=== PATIENT | male | born 1960 | race Caucasian/White ===

== ENCOUNTER 2024-04-28 08:52 | Emergency (ER) | payer BC, SELFPAY ==
[2024-04-28 08:57] VITALS: BP 164/97
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
[2024-04-28 12:14] VITALS: BP 119/65
== END 2024-04-28 13:04 | disposition home or self-care (01) ==
LOC: EMR 08:52
PROVIDERS: EMERGENCY PHYSICIAN Emergency Medicine; FAMILY PHYSICIAN Internal Medicine
DX: M79.651 Pain in right thigh (principal); V18.0XXA Pedal cycle driver injured in noncollision transport accident in nontraffic accident, initial encounter; Y93.55 Activity, bike riding
CPT/HCPCS: 99284; 73552; 93925

== ENCOUNTER → 2024-05-04 07:25 | Outpatient (REF) | payer BC, SELFPAY | LOC: RAD 07:25 | PROVIDERS: ATTENDING PHYSICIAN Physician Assistant; FAMILY PHYSICIAN Internal Medicine | DX: S05.01XA Injury of conjunctiva and corneal abrasion without foreign body, right eye, initial encounter (principal) | CPT/HCPCS: 70030 ==

== ENCOUNTER 2024-05-07 15:29 | Emergency (ER) | payer BC, SELFPAY ==
[2024-05-07 15:32] VITALS: BP 134/89
[2024-05-07 16:09] VITALS: BMI 28.3
--- NOTE | 2024-05-07 16:17 | ED.GENMED ---
History of Present Illness
General
Chief Complaint: Extremity Pain (non-traumatic)
Time Seen by Provider: 05/07/24 15:58
History of Present Illness
History of Present Illness:
64-year-old male presents the emergency department for evaluation of continued right thigh pain. He was seen this emergency department last week for this at which time an x-ray of the femur as well as an arterial Doppler ultrasound were obtained
and this was unremarkable. He followed up as an outpatient with orthopedics and was scheduled for pain was not able to lay still long enough for the MRI this past Saturday. His MRI was rescheduled in 7 days however was advised by orthopedics to
come to the ER due to increasing pain. He is taking oxycodone with mild relief. Denies any lower extremity paresthesias
Past History
Past History
ED Past Medical History: HTN
ED Past Surgical History: None
Social History
Tobacco: Non-smoker
Personal:
Living: with family
Employment: Employed
Review of Systems
Review of Systems
Allergies reviewed?: Yes
All Other Systems: ROS reviewed and negative except as documented in HPI and ROS
Phy Exam
Physical Exam
Physical Exam:
GEN: Well appearing, NAD, WDWN
HEENT: Oral mucosa moist, no scleral icterus
Cardiac: Regular rate
Lung: No respiratory distress, no tachypnea
MSK: No gross deformity or injuries. Right hip range of motion normal, right knee range of motion normal, no focal muscular tenderness
Skin: Good color, no pallor or jaundice, no rashes
Neuro: AO x3, moves all extremities freely
Psych: Calm, cooperative
Course
Vital Signs
Initial and Last Documented VS:
Initial Vital Signs
Temp Pulse Resp BP Pulse Ox
97.6 F 78 18 134/89 97
05/07/24 15:32 05/07/24 15:32 05/07/24 15:32 05/07/24 15:32 05/07/24 15:32
Last Documented Vital Signs
Temp Pulse Resp BP Pulse Ox
97.6 F 78 18 134/89 97
05/07/24 15:32 05/07/24 15:32 05/07/24 15:32 05/07/24 15:32 05/07/24 15:32
MDM/Problems Addressed
MDM/Problems Addressed:
Exam is grossly unremarkable. Do not see indication for further studies. Discussed possibility of lumbar radiculopathy given the vagueness of his pain and lack of prior trauma. Recommended continue with outpatient orthopedic follow-up, no
indication for emergent MRI
*Critical Care Note
Total Time (30-74mins, 75-104mins- exclusive of procedures): Not Applicable
ED Attending Note
-
Portions of this chart may have been created with voice recognition software.� Occasional wrong word or��sound alike� substitutions may have occurred due to the inherent limitations of voice recognition software.
Discharge Plan
Departure
Patient Disposition: Home (Routine Discharge)
Date of Disposition: 05/07/24
Time of Disposition: 16:17
Patient with high blood pressure during this ER visit?: No
Discharge Problem:
Acute pain of right thigh
Instructions: Muscle and Bone Pain (DC)
Prescriptions:
New
gabapentin 300 mg capsule
300 mg PO TID PRN (Reason: pain) Qty: 20 0RF
lorazepam 1 mg tablet
1 mg PO ONCE Qty: 2 0RF
Rx Instructions:
1mg PO 1 hr before MRI; may take additional 1mg at time of MRI if needed
No Action
oxycodone-acetaminophen 5 MG/325 MG tablet
1 tab PO Q4HPRN PRN (Reason: pain) Qty: 20 0RF
ketorolac 10 MG tablet
10 mg PO Q6 Qty: 8 0RF
cyclobenzaprine 10 mg tablet
10 mg PO TID PRN (Reason: pain) Qty: 15 0RF
Referrals:
Rodolfo Miller MD [Family Provider] -
Activity Restrictions/Additional Instructions:
Discuss with Orthopedics the possibility of lumbar spine problems causing your pain
Interventions
Interventions:
*Risk Screen - Suicide Last Done: 05/07/24 16:09
*General Assessment Last Done: 05/07/24 16:09
*Neglect/Abuse Screening Last Done: 05/07/24 16:09
ED- Fall Risk Assessment Last Done: 05/07/24 16:09
*Nursing Disposition Last Done: 05/07/24 16:30
ED-Skin Assessment Last Done: 05/07/24 16:11
ED-Musculoskeletal Assessment Last Done: 05/07/24 16:09
Discharge Date and Time
Discharge Date/Time: 05/07/24 16:30
Print Language: CHINESE
== END 2024-05-07 16:30 | disposition home or self-care (01) ==
LOC: EMR 15:29
PROVIDERS: EMERGENCY PHYSICIAN Emergency Medicine; FAMILY PHYSICIAN Internal Medicine
DX: M79.651 Pain in right thigh (principal); I10 Essential (primary) hypertension
CPT/HCPCS: 99282

== ENCOUNTER 2024-05-12 23:49 | Emergency (ER) | payer BC, SELFPAY ==
[2024-05-13 00:02] VITALS: BP 171/99
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
[2024-05-13] MEDS: TYLENOL 1000 MG PO (01:25)
[2024-05-13] MEDS: TORADOL 60 MG IM (01:26)
[2024-05-13] MEDS: DILAUDID 2 MG PO ×2 (01:26→02:34)
[2024-05-13 01:34] VITALS: BP 178/109
[2024-05-13 03:05] VITALS: BP 169/97
== END 2024-05-13 03:05 | disposition home or self-care (01) ==
LOC: EMR 23:49
PROVIDERS: EMERGENCY PHYSICIAN Student in an Organized Health Care Education/Training Program; FAMILY PHYSICIAN Internal Medicine
DX: M79.651 Pain in right thigh (principal); I10 Essential (primary) hypertension; Z87.891 Personal history of nicotine dependence
CPT/HCPCS: 99284; 96372

== ENCOUNTER → 2024-06-18 09:06 | Outpatient (REF) | payer BC, SELFPAY | LOC: HWRAD 09:06 | PROVIDERS: ATTENDING PHYSICIAN Nurse Practitioner Family | DX: S69.91XA Unspecified injury of right wrist, hand and finger(s), initial encounter (principal) | CPT/HCPCS: 73130 ==

== ENCOUNTER → 2024-07-20 06:10 | Outpatient (REF) | payer BC, SELFPAY ==
[2024-07-20 09:42] LABS: ALT (SGPT) 27 U/L (0-50); AST (SGOT) 29 U/L (17-59); Albumin 4.3 g/dl (3.5-5.0); Alkaline Phosphatase 60 U/L (38-126); Blood Urea Nitrogen 20 mg/dl (9-20); Calcium 9.6 mg/dl (8.4-10.2); Carbon Dioxide 31 mmol/L (22-30); Chloride 102 mmol/L (98-107); Glucose 104 mg/dl (70-99); HDL Cholesterol 71 mg/dl; LDL Cholesterol, Calculated 165 mg/dl; Potassium 3.9 mmol/L (3.5-5.1); Sodium 141 mmol/L (135-145); Total Bilirubin 0.8 mg/dl (0.2-1.3); Total Cholesterol 256 mg/dl (50-199); Total Protein 6.8 g/dl (6.3-8.2); Triglyceride 103 mg/dl (10-149); Very Low Density Lipoprotein 20 mg/dl (0-30); eGFR > 60.00
[2024-07-20 10:06] LABS: PSA, Total - Screen 3.23 ng/ml (0.0-4.0)
[2024-07-21 10:58] LABS: CRP, Highly Sensitive 2.65 mg/L
== END ==
LOC: HWLAB 06:10
PROVIDERS: ATTENDING PHYSICIAN Internal Medicine
DX: E78.5 Hyperlipidemia, unspecified (principal)
CPT/HCPCS: 36415; 80053; 80061; 86141; G0103

== ENCOUNTER → 2025-02-15 06:09 | Outpatient (REF) | payer BC, SELFPAY ==
[2025-02-15 09:51] LABS: ALT (SGPT) 30 U/L (0-50); AST (SGOT) 29 U/L (17-59); Albumin 4.3 g/dl (3.5-5.0); Alkaline Phosphatase 63 U/L (38-126); Blood Urea Nitrogen 22 mg/dl (9-20); Calcium 9.2 mg/dl (8.4-10.2); Carbon Dioxide 26 mmol/L (22-30); Chloride 107 mmol/L (98-107); Glucose 112 mg/dl (70-99); HDL Cholesterol 62 mg/dl; LDL Cholesterol, Calculated 97 mg/dl; Potassium 4.6 mmol/L (3.5-5.1); Sodium 144 mmol/L (135-145); Total Bilirubin 0.7 mg/dl (0.2-1.3); Total Cholesterol 172 mg/dl (50-199); Triglyceride 65 mg/dl (10-149); Very Low Density Lipoprotein 13 mg/dl (0-30); eGFR > 60.00
[2025-02-15 10:16] LABS: PSA, Total - Screen 3.51 ng/ml (0.0-4.0)
== END ==
LOC: HWLAB 06:09
PROVIDERS: ATTENDING PHYSICIAN Internal Medicine
DX: I10 Essential (primary) hypertension (principal); N40.0 Benign prostatic hyperplasia without lower urinary tract symptoms
CPT/HCPCS: 36415; 80053; 80061; G0103

== ENCOUNTER → 2025-08-11 06:32 | Outpatient (REF) | payer BC, SELFPAY ==
[2025-08-11 10:04] LABS: PSA, Total - Diagnostic 2.74 ng/ml (0.0-4.0)
== END ==
LOC: HWLAB 06:32
PROVIDERS: ATTENDING PHYSICIAN Urology
DX: R97.20 Elevated prostate specific antigen [PSA] (principal); N52.9 Male erectile dysfunction, unspecified
CPT/HCPCS: 36415; 84153

== ENCOUNTER → 2025-10-12 06:05 | Outpatient (REF) | payer BC, SELFPAY ==
[2025-10-12 10:00] LABS: Hematocrit 43.1 % (39.0-52.0); Hemoglobin 14.3 g/dL (13.0-18.0); Mean Corp Hgb Conc. 33.2 g/dL (33.0-37.0); Mean Corpuscular Volume 86.5 fL (80.0-94.0); Nucleated Red Blood Cells % 0 % (-); Platelet Count 256 10^3/uL (130-400); Red Cell Dist. Width 13.6 % (11.5-14.5)
[2025-10-12 10:16] LABS: ALT (SGPT) 45 U/L (0-50); AST (SGOT) 38 U/L (17-59); Albumin 4.2 g/dl (3.5-5.0); Alkaline Phosphatase 63 U/L (38-126); Blood Urea Nitrogen 20 mg/dl (9-20); Calcium 9.1 mg/dl (8.4-10.2); Carbon Dioxide 26 mmol/L (22-30); Chloride 105 mmol/L (98-107); Glucose 95 mg/dl (70-99); HDL Cholesterol 66 mg/dl; LDL Cholesterol, Calculated 101 mg/dl; Potassium 4.1 mmol/L (3.5-5.1); Sodium 137 mmol/L (135-145); Total Protein 7.2 g/dl (6.3-8.2); Very Low Density Lipoprotein 11 mg/dl (0-30); eGFR > 60.00
[2025-10-13 13:21] LABS: Lyme Antibody Screen, EIA Negative (Negative)
== END ==
LOC: HWLAB 06:05
DX: I10 Essential (primary) hypertension (principal); E78.2 Mixed hyperlipidemia; S20.362A Insect bite (nonvenomous) of left front wall of thorax, initial encounter; W57.XXXA Bitten or stung by nonvenomous insect and other nonvenomous arthropods, initial encounter
CPT/HCPCS: 36415; 80053; 80061; 84443; 85025; 86618